=== PATIENT | female | born 2000 | race Caucasian/White ===

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

== ENCOUNTER → 2018-03-05 | Outpatient (CLI) | payer BC ==
[~2018-03-05] MED LIST changes: +Augmentin 875-1 EACH PO
== END | disposition home or self-care (01) ==
LOC: LAB 10:41 → LAB SHORT 10:41
DX: Z09 Encounter for follow-up examination after completed treatment for conditions other than malignant neoplasm (principal); Z86.14 Personal history of Methicillin resistant Staphylococcus aureus infection
CPT/HCPCS: 87081

== ENCOUNTER → 2018-04-07 | Outpatient (CLI) | payer BC | END | disposition home or self-care (01) | LOC: LAB SHORT 19:05 → LAB 19:05 | DX: Z09 Encounter for follow-up examination after completed treatment for conditions other than malignant neoplasm (principal); Z86.14 Personal history of Methicillin resistant Staphylococcus aureus infection | CPT/HCPCS: 87081 ==

== ENCOUNTER → 2018-07-08 | Outpatient (CLI) | payer BC, OTHER | END | disposition home or self-care (01) | LOC: LAB 14:40 → LAB SHORT 14:40 | DX: B95.62 Methicillin resistant Staphylococcus aureus infection as the cause of diseases classified elsewhere (principal) | CPT/HCPCS: 87081 ==

== ENCOUNTER → 2018-08-24 | Outpatient (CLI) | payer BC, OTHER ==
[~2018-08-24] MED LIST changes: +EVENING PRIMR1000 MG PO; +VALA500 PO; +Verotin-Gr Cap1 EACH PO
== END ==
LOC: LAB 16:48 → LAB SHORT 16:48
DX: L72.3 Sebaceous cyst (principal)
CPT/HCPCS: 87070; 87077; 87147; 87186; 87205

== ENCOUNTER 2018-08-30 11:23 | Emergency (ER) | payer BC, OTHER ==
[~2018-08-30] VITALS: Ht 162.6 cm; Wt 95.2 kg
[~2018-08-30 11:23] MED LIST changes: -EVENING PRIMR1000 MG PO; -VALA500 PO; -Verotin-Gr Cap1 EACH PO
[2018-08-30] MEDS ORDERED: Verotin-Gr Cap1 EACH PO (11:41)
== END 2018-08-30 13:46 | disposition home or self-care (01) ==
LOC: ER 11:23
DX: O99.713 Diseases of the skin and subcutaneous tissue complicating pregnancy, third trimester (principal); L02.411 Cutaneous abscess of right axilla; A49.02 Methicillin resistant Staphylococcus aureus infection, unspecified site; Z3A.34 34 weeks gestation of pregnancy
CPT/HCPCS: 10060; 96365-59; 99283-25; J0878

== ENCOUNTER 2018-08-31 18:12 | Emergency (ER) | payer BC, OTHER ==
[~2018-08-31] VITALS: Ht 162.6 cm; Wt 86.2 kg
[~2018-08-31 18:12] MED LIST changes: +Verotin-Gr Cap1 EACH PO
== END 2018-08-31 18:22 | disposition home or self-care (01) ==
LOC: ER 18:12
DX: O99.719 Diseases of the skin and subcutaneous tissue complicating pregnancy, unspecified trimester (principal); L02.411 Cutaneous abscess of right axilla; O98.819 Other maternal infectious and parasitic diseases complicating pregnancy, unspecified trimester; A49.02 Methicillin resistant Staphylococcus aureus infection, unspecified site; Z88.2 Allergy status to sulfonamides; Z91.040 Latex allergy status; Z87.891 Personal history of nicotine dependence
CPT/HCPCS: 99282

== ENCOUNTER → 2018-09-08 | Outpatient (CLI) | payer BC, OTHER ==
[~2018-09-08] MED LIST changes: +EVENING PRIMR1000 MG PO; +VALA500 PO
== END | disposition home or self-care (01) ==
LOC: LAB SHORT 14:33 → LAB 14:33
DX: Z09 Encounter for follow-up examination after completed treatment for conditions other than malignant neoplasm (principal); Z86.14 Personal history of Methicillin resistant Staphylococcus aureus infection
CPT/HCPCS: 87081

== ENCOUNTER 2018-10-01 20:00 | Inpatient (IN) | payer BC, OTHER ==
[~2018-10-01] VITALS: Ht 162.6 cm; Wt 99.0 kg
[~2018-10-01 20:00] MED LIST changes: -EVENING PRIMR1000 MG PO; -VALA500 PO
[2018-10-01] MEDS ORDERED: VALA500 PO (20:32)
[2018-10-01] MEDS ORDERED: EVENING PRIMR1000 MG PO (20:33)
[2018-10-01 21:04] LABS: BASOPHILS ABSOLUTE AUTO 0.05 K/mm3 (0.00-0.23); BASOPHILS PERCENT AUTO 0 % (0-2); EOSINOPHILS ABSOLUTE AUTO 0.37 K/mm3 (0.00-0.68); EOSINOPHILS PERCENT AUTO 3 % (0-6); Hematocrit 32.4 % (33.0-51.0); Hemoglobin 10.2 g/dL (11.5-16.0); IMMATURE GRAN ABSOLUTE AUTO 0.07 K/mm3 (0.00-0.10); IMMATURE GRAN PERCENT AUTO 1 % (0-1); LYMPHOCYTES ABSOLUTE AUTO 3.17 K/mm3 (0.84-5.20); LYMPHOCYTES PERCENT AUTO 28 % (21-46); MONOCYTES ABSOLUTE AUTO 1.04 K/mm3 (0.16-1.47); MONOCYTES PERCENT AUTO 9 % (4-13); Mean Corpuscular HGB 26.2 pg (26.0-34.0); Mean Corpuscular HGB Conc 31.5 g/dL (31.5-36.5); Mean Corpuscular Volume 83 fL (80-100); Mean Platelet Volume 10.7 fL (9.1-12.4); NEUTROPHILS ABSOLUTE AUTO 6.45 K/mm3 (1.96-9.15); NEUTROPHILS PERCENT AUTO 58 % (41-73); Platelet Count 340 K/mm3 (150-400); White Blood Cell Count 11.15 K/mm3 (4.00-11.30)
--- NOTE | 2018-10-02 08:09 | NUR ---
0718 ASSUMED CARE OF PATIENT AWAKE AND RESTING IN BED. VSS. SWAB FOR MRSA OBTAINED PER INFECTIOUS DISEASE PROTOCOL. EXPLAINED TO PATIENT AND HER MOTHER THAT HER INDUCTION WEOULD BE DELAYED DUE TO STAFFING ISSUES. I WILL KEEP THEM INFORMED TO WHEN INDUCTION WILL OCCUR. Frieda COPELAND CNM AWARE OF DELAY
--- NOTE | 2018-10-02 16:15 | NUR ---
HEAD DELIVERED 50 SECONDS BEFORE BODY
--- NOTE | 2018-10-02 17:20 | NUR ---
FIRST PP VOID
--- NOTE | 2018-10-03 11:37 | NUR ---
Printed d/c instructions reviewed w/pt. Denies questions/concerns at this time.
[2018-10-03] MEDS ORDERED: IBUP800 PO (15:12)
--- NOTE | 2018-10-03 15:42 | NUR ---
No acute changes t/o shift. ID bands matched w/nb and verification form. Pt d/c'd home ambulatory to care of family.
== END 2018-10-03 15:30 | disposition home or self-care (01) | DRG 807 ==
LOC: BC 20:00
PROVIDERS: ADMIT Nurse Practitioner Obstetrics & Gynecology
PROC: 10E0XZZ Delivery of Products of Conception, External Approach (ICD-10-PCS; principal; 2018-10-02)
PROC: 3E0R3BZ Introduction of Anesthetic Agent into Spinal Canal, Percutaneous Approach (ICD-10-PCS; 2018-10-02)
PROC: 3E0234Z Introduction of Serum, Toxoid and Vaccine into Muscle, Percutaneous Approach (ICD-10-PCS; 2018-10-03)
DX: O40.3XX0 Polyhydramnios, third trimester, not applicable or unspecified (principal); Z37.0 Single live birth; O36.63X0 Maternal care for excessive fetal growth, third trimester, not applicable or unspecified; Z3A.39 39 weeks gestation of pregnancy; Z23 Encounter for immunization; Z88.2 Allergy status to sulfonamides; Z91.040 Latex allergy status; Z86.14 Personal history of Methicillin resistant Staphylococcus aureus infection; O99.214 Obesity complicating childbirth; E66.9 Obesity, unspecified; Z68.37 Body mass index [BMI] 37.0-37.9, adult
CPT/HCPCS: 36415; 51702; 85025; 86900; 86901; 87070; 87081; 90471; 90707; J1885; J2210; J2590; J3010; J7120

== ENCOUNTER 2019-02-14 16:10 | Emergency (ER) | payer BC, OTHER ==
[~2019-02-14] VITALS: Ht 162.6 cm; Wt 88.5 kg
[~2019-02-14 16:10] MED LIST changes: +EVENING PRIMR1000 MG PO; +VALA500 PO
[2019-02-14 17:11] LABS: Source, Urine Clean Catch
[2019-02-14 17:15] LABS: BASOPHILS ABSOLUTE AUTO 0.09 K/mm3 (0.00-0.23); BASOPHILS PERCENT AUTO 1 % (0-2); EOSINOPHILS ABSOLUTE AUTO 0.67 K/mm3 (0.00-0.68); EOSINOPHILS PERCENT AUTO 7 % (0-6); Hematocrit 43.4 % (33.0-51.0); IMMATURE GRAN ABSOLUTE AUTO 0.01 K/mm3 (0.00-0.10); IMMATURE GRAN PERCENT AUTO 0 % (0-1); LYMPHOCYTES ABSOLUTE AUTO 3.63 K/mm3 (0.84-5.20); LYMPHOCYTES PERCENT AUTO 40 % (21-46); MONOCYTES ABSOLUTE AUTO 0.89 K/mm3 (0.16-1.47); MONOCYTES PERCENT AUTO 10 % (4-13); Mean Corpuscular HGB 28.3 pg (26.0-34.0); Mean Corpuscular HGB Conc 32.3 g/dL (31.5-36.5); Mean Corpuscular Volume 88 fL (80-100); Mean Platelet Volume 9.9 fL (9.1-12.4); NEUTROPHILS ABSOLUTE AUTO 3.76 K/mm3 (1.96-9.15); NEUTROPHILS PERCENT AUTO 42 % (41-73); Platelet Count 387 K/mm3 (150-400); RDW Coefficient Variation 11.9 % (11.7-14.2); Red Blood Cell Count 4.95 M/mm3 (3.80-5.20); White Blood Cell Count 9.05 K/mm3 (4.00-11.30)
[2019-02-14 17:36] LABS: Alanine Aminotransfer (ALT/SGP 55 U/L (12-78); Albumin, Blood 3.8 g/dL (3.4-5.0); Albumin/Globulin Ratio 0.8 (0.8-1.8); Alk Phos 90 U/L (50-136); Anion Gap 6 mmol/L (6-16); Aspartate Aminotrans (AST/SGOT 24 U/L (12-37); Bilirubin, Total 0.4 mg/dL (0.1-1.0); Blood Urea Nitrogen 16 mg/dL (8-24); Bun/Creatinine Ratio 25.1 (12.0-20.0); CO2, Blood 25 mmol/L (21-32); Chloride, Blood 110 mmol/L (98-108); Creatinine, Blood 0.64 mg/dL (0.40-1.00); Globulin, Blood 4.5 g/dL (2.2-4.0); Glomerular Filtration Rate >60 (60-); Glucose, Blood 78 mg/dL (70-99); Potassium, Blood 3.9 mmol/L (3.5-5.5); Sodium, Blood 141 mmol/L (136-145); Total Protein, Blood 8.3 g/dL (6.4-8.2)
[2019-02-14 17:47] LABS: Bilirubin, Urine Neg (Neg); Blood, Urine 1+ (Neg); Glucose Qualitative, Urine Neg (Neg); Ketones, Urine Neg (Neg); Leukocyte Esterase, Urine Neg (Neg); Nitrite, Urine Neg (Neg); Protein, Urine 1+ (Neg); Specific Gravity, Urine 1.015 (1.003-1.022); Urobilinogen, Urine NORM (Normal)
[2019-02-14 17:48] LABS: Appearance, Urine Clear (Clear); Color, Urine Yellow (P-Yellow)
[2019-02-14 18:08] LABS: Bacteria Rare /hpf; Red Blood Cells, Urine Not Seen /hpf (0-2); Squamous Epithelial Cells Rare /hpf (Few); White Blood Cells, Urine Rare /hpf (0-5)
== END 2019-02-14 20:22 | disposition home or self-care (01) ==
LOC: ER 16:10
PROVIDERS: Physician Assistant
DX: R10.31 Right lower quadrant pain (principal); Z88.2 Allergy status to sulfonamides; Z91.040 Latex allergy status
CPT/HCPCS: 36415; 76830; 76856; 80053; 81001; 81025; 83690; 85025; 96360; 99284-25; J2405; J7030

== ENCOUNTER 2019-04-07 08:04 | Emergency (ER) | payer BC, OTHER ==
[~2019-04-07] VITALS: Ht 162.6 cm; Wt 90.7 kg
[2019-04-07] MEDS ORDERED: Prednisone20 MG PO (09:21)
[2019-04-07] MEDS ORDERED: Sudogest60 MG PO (09:24)
== END 2019-04-07 09:29 | disposition home or self-care (01) ==
LOC: ER 08:04
DX: K12.2 Cellulitis and abscess of mouth (principal); J32.9 Chronic sinusitis, unspecified; Z88.2 Allergy status to sulfonamides; Z91.040 Latex allergy status; Z79.52 Long term (current) use of systemic steroids; Z79.899 Other long term (current) drug therapy
CPT/HCPCS: 87081; 87430; 99282; J1100

== ENCOUNTER 2019-04-27 17:19 | Emergency (ER) | payer BC, OTHER ==
[~2019-04-27] VITALS: Ht 162.6 cm; Wt 93.0 kg
[~2019-04-27 17:19] MED LIST changes: +Prednisone20 MG PO; +Sudogest60 MG PO
[2019-04-27] MEDS ORDERED: DEPO-PROVE150 MG/1 M IM (17:47)
[2019-04-27 18:36] LABS: BASOPHILS ABSOLUTE AUTO 0.03 K/mm3 (0.00-0.23); BASOPHILS PERCENT AUTO 0 % (0-2); EOSINOPHILS ABSOLUTE AUTO 0.24 K/mm3 (0.00-0.68); EOSINOPHILS PERCENT AUTO 3 % (0-6); Hematocrit 40.7 % (33.0-51.0); Hemoglobin 13.1 g/dL (11.5-16.0); IMMATURE GRAN ABSOLUTE AUTO 0.02 K/mm3 (0.00-0.10); IMMATURE GRAN PERCENT AUTO 0 % (0-1); LYMPHOCYTES ABSOLUTE AUTO 1.63 K/mm3 (0.84-5.20); LYMPHOCYTES PERCENT AUTO 19 % (21-46); MONOCYTES ABSOLUTE AUTO 0.29 K/mm3 (0.16-1.47); MONOCYTES PERCENT AUTO 3 % (4-13); Mean Corpuscular HGB Conc 32.2 g/dL (31.5-36.5); Mean Corpuscular Volume 87 fL (80-100); NEUTROPHILS ABSOLUTE AUTO 6.56 K/mm3 (1.96-9.15); NEUTROPHILS PERCENT AUTO 75 % (41-73); Platelet Count 298 K/mm3 (150-400); RDW Coefficient Variation 13.3 % (11.7-14.2); RDW Standard Deviation 41.9 fL (35.1-46.3); Red Blood Cell Count 4.68 M/mm3 (3.80-5.20); White Blood Cell Count 8.77 K/mm3 (4.00-11.30)
[2019-04-27 18:58] LABS: Alanine Aminotransfer (ALT/SGP 23 U/L (12-78); Albumin, Blood 3.9 g/dL (3.4-5.0); Alk Phos 85 U/L (50-136); Anion Gap 3 mmol/L (6-16); Aspartate Aminotrans (AST/SGOT 14 U/L (12-37); Bilirubin, Total 0.9 mg/dL (0.1-1.0); Blood Urea Nitrogen 17 mg/dL (8-24); Bun/Creatinine Ratio 18.6 (12.0-20.0); CO2, Blood 24 mmol/L (21-32); Calcium, Blood 8.4 mg/dL (8.5-10.1); Chloride, Blood 108 mmol/L (98-108); Creatinine, Blood 0.92 mg/dL (0.40-1.00); Globulin, Blood 3.8 g/dL (2.2-4.0); Glomerular Filtration Rate >60 (60-); Glucose, Blood 88 mg/dL (70-99); Potassium, Blood 3.7 mmol/L (3.5-5.5); Sodium, Blood 135 mmol/L (136-145); Total Protein, Blood 7.7 g/dL (6.4-8.2)
[2019-04-27 19:50] LABS: Source, Urine Clean Catch
[2019-04-27 19:52] LABS: Bilirubin, Urine Neg (Neg); Blood, Urine 1+ (Neg); Glucose Qualitative, Urine Neg (Neg); Ketones, Urine Neg (Neg); Leukocyte Esterase, Urine 1+ (Neg); Nitrite, Urine Neg (Neg); Protein, Urine 1+ (Neg); Urobilinogen, Urine NORM (Normal)
[2019-04-27 20:01] LABS: Appearance, Urine Clear (Clear); Color, Urine Yellow (P-Yellow)
[2019-04-27 20:03] LABS: Bacteria Few /hpf; Mucus Light (0-Heavy); Red Blood Cells, Urine 0-2 /hpf (0-2); Squamous Epithelial Cells Few /hpf (Few); White Blood Cells, Urine 0-2 /hpf (0-5)
[2019-04-27 21:05] LABS: Influenza A Negative (NEGATIVE); Influenza B Negative (NEGATIVE)
== END 2019-04-27 22:26 | disposition home or self-care (01) ==
LOC: ER 17:19
PROVIDERS: Emergency Medicine; Physician Assistant
DX: R10.30 Lower abdominal pain, unspecified (principal); Z88.2 Allergy status to sulfonamides; Z91.040 Latex allergy status
CPT/HCPCS: 36415; 76830; 76856; 80053; 81001; 81025; 83690; 85025; 87086; 87804; 96361; 96374; 99284-25; J1885; J7030

== ENCOUNTER 2019-06-13 11:43 | Emergency (ER) | payer BC, OTHER ==
[~2019-06-13] VITALS: Ht 162.6 cm; Wt 95.2 kg
[~2019-06-13 11:43] MED LIST changes: +DEPO-PROVE150 MG/1 M IM
[2019-06-13] MEDS ORDERED: KEFLEX500 MG PO (12:41)
[2019-06-13] MEDS ORDERED: CLIN300 PO (12:41)
== END 2019-06-13 13:05 | disposition home or self-care (01) ==
LOC: ER 11:43
DX: L03.116 Cellulitis of left lower limb (principal); Z88.2 Allergy status to sulfonamides; Z91.040 Latex allergy status
CPT/HCPCS: 99283; A9270-GY

== ENCOUNTER → 2019-07-23 | Outpatient (CLI) | payer BC, OTHER ==
[~2019-07-23] MED LIST changes: +CLIN300 PO; +KEFLEX500 MG PO
[2019-07-24 10:46] LABS: Candida species (DNA Probe) Negative (NEGATIVE); G. vaginalis (DNA Probe) Negative (NEGATIVE); T. vaginalis (DNA Probe) Negative (NEGATIVE)
[2019-07-25 05:07] LABS: CHLAMYDIA TRACHOMATIS, NAA Negative (Negative); NEISSERIA GONORRHOEAE, NAA Negative (Negative)
== END | disposition home or self-care (01) ==
LOC: LAB SHORT 15:01 → LAB 15:01
PROVIDERS: Physician Assistant
DX: R10.2 Pelvic and perineal pain (principal); R30.0 Dysuria
CPT/HCPCS: 87086; 87480; 87491; 87510; 87591; 87660

== ENCOUNTER 2020-06-01 01:00 | Emergency (ER) | payer BC, OTHER ==
[~2020-06-01] VITALS: Ht 162.6 cm; Wt 99.8 kg
[2020-06-01 02:03] LABS: Source, Urine Clean Catch
[2020-06-01 02:06] LABS: Bilirubin, Urine Neg (Neg); Blood, Urine Neg (Neg); Glucose Qualitative, Urine Neg (Neg); Ketones, Urine 2+ (Neg); Leukocyte Esterase, Urine Neg (Neg); Nitrite, Urine Neg (Neg); Protein, Urine 1+ (Neg); Urobilinogen, Urine NORM (Normal)
[2020-06-01 02:12] LABS: Appearance, Urine Clear (Clear); Color, Urine Yellow (P-Yellow)
[2020-06-01 02:59] LABS: BASOPHILS ABSOLUTE AUTO 0.09 K/mm3 (0.00-0.23); BASOPHILS PERCENT AUTO 1 % (0-2); EOSINOPHILS PERCENT AUTO 8 % (0-6); Hemoglobin 12.3 g/dL (11.5-16.0); IMMATURE GRAN ABSOLUTE AUTO 0.02 K/mm3 (0.00-0.10); IMMATURE GRAN PERCENT AUTO 0 % (0-1); LYMPHOCYTES ABSOLUTE AUTO 4.24 K/mm3 (0.84-5.20); LYMPHOCYTES PERCENT AUTO 45 % (21-46); MONOCYTES ABSOLUTE AUTO 0.58 K/mm3 (0.16-1.47); MONOCYTES PERCENT AUTO 6 % (4-13); Mean Corpuscular HGB 29.9 pg (26.0-34.0); Mean Corpuscular HGB Conc 33.2 g/dL (31.5-36.5); Mean Corpuscular Volume 90 fL (80-100); Mean Platelet Volume 10.2 fL (9.1-12.4); NEUTROPHILS ABSOLUTE AUTO 3.76 K/mm3 (1.96-9.15); NEUTROPHILS PERCENT AUTO 40 % (41-73); Platelet Count 326 K/mm3 (150-400); RDW Coefficient Variation 12.6 % (11.7-14.2); RDW Standard Deviation 41.8 fL (35.1-46.3); Red Blood Cell Count 4.11 M/mm3 (3.80-5.20); White Blood Cell Count 9.49 K/mm3 (4.00-11.30)
[2020-06-01 03:16] LABS: Alanine Aminotransfer (ALT/SGP 31 U/L (12-78); Albumin, Blood 3.5 g/dL (3.4-5.0); Albumin/Globulin Ratio 0.9 (0.8-1.8); Alk Phos 91 U/L (50-136); Anion Gap 5 mmol/L (6-16); Aspartate Aminotrans (AST/SGOT 17 U/L (12-37); Bilirubin, Total 0.4 mg/dL (0.1-1.0); Blood Urea Nitrogen 19 mg/dL (8-24); Bun/Creatinine Ratio 20.8 (12.0-20.0); CO2, Blood 29 mmol/L (21-32); Calcium, Blood 8.7 mg/dL (8.5-10.1); Chloride, Blood 107 mmol/L (98-108); Creatinine, Blood 0.91 mg/dL (0.40-1.00); Globulin, Blood 3.7 g/dL (2.2-4.0); Glomerular Filtration Rate >60 (60-); Glucose, Blood 95 mg/dL (70-99); Potassium, Blood 3.3 mmol/L (3.5-5.5); Sodium, Blood 141 mmol/L (136-145); Total Protein, Blood 7.2 g/dL (6.4-8.2)
== END 2020-06-01 04:35 | disposition home or self-care (01) ==
LOC: ER 01:00
PROVIDERS: Emergency Medicine
DX: E28.2 Polycystic ovarian syndrome (principal); Z88.2 Allergy status to sulfonamides; Z91.040 Latex allergy status
CPT/HCPCS: 36415; 80053; 81025; 85025; 96374; 99284-25; A9270; J1885

== ENCOUNTER → 2021-07-04 | Outpatient (CLI) | payer BC, OTHER | LOC: LAB SHORT 10:55 → LAB 10:55 | DX: D48.5 Neoplasm of uncertain behavior of skin (principal); L73.2 Hidradenitis suppurativa; L81.4 Other melanin hyperpigmentation; L08.9 Local infection of the skin and subcutaneous tissue, unspecified | CPT/HCPCS: 87070; 87077; 87147; 87186 ==

== ENCOUNTER → 2021-08-29 | Outpatient (CLI) | payer BC, OTHER | END | disposition home or self-care (01) | LOC: LAB 11:00 → LAB SHORT 11:00 | DX: N39.0 Urinary tract infection, site not specified (principal) | CPT/HCPCS: 87086 ==

== ENCOUNTER → 2021-08-29 | Outpatient (CLI) | payer BC, OTHER ==
[2021-08-29 20:52] LABS: Adenovirus F 40/41 Not Detected (NOT DETECT); Astrovirus Not Detected (NOT DETECT); Campylobacter Sp Detected (NOT DETECT); Cryptosporidium Not Detected (NOT DETECT); Cyclospora Cayetanensis Not Detected (NOT DETECT); E. Coli O157 Not Detected (NOT DETECT); Entamoeba Histolytica Not Detected (NOT DETECT); Enteroaggregative E. coli-EAEC Not Detected (NOT DETECT); Enteropathogenic E. coli-EPEC Not Detected (NOT DETECT); Enterotoxigenic E. coli-ETEC Not Detected (NOT DETECT); Giardia Lamblia Not Detected (NOT DETECT); Norovirus GI/GII Not Detected (NOT DETECT); Plesiomonas Shigelloides Not Detected (NOT DETECT); Rotavirus A Not Detected (NOT DETECT); Salmonella Sp Not Detected (NOT DETECT); Sapovirus Not Detected (NOT DETECT); Shiga Toxin-prod E. coli-STEC Not Detected (NOT DETECT); Shigella/Enteroin E. coli-EIEC Not Detected (NOT DETECT); Vibrio Cholerae Not Detected (NOT DETECT); Vibrio Sp Not Detected (NOT DETECT); Yersinia Enterocolitica Not Detected (NOT DETECT)
== END | disposition home or self-care (01) ==
LOC: LAB SHORT 17:00 → LAB 17:00 → LAB FUT 08-29 17:00
PROVIDERS: Family Medicine
DX: K52.9 Noninfective gastroenteritis and colitis, unspecified (principal); R79.9 Abnormal finding of blood chemistry, unspecified
CPT/HCPCS: 87507

== ENCOUNTER 2022-06-04 09:36 | Emergency (ER) | payer BC, OTHER ==
[~2022-06-04] VITALS: Ht 162.6 cm; Wt 108.0 kg
[2022-06-04 11:13] LABS: Albumin, Blood 3.5 g/dL (3.4-5.0); Albumin/Globulin Ratio 0.8 (0.8-1.8); Bilirubin, Total 1.3 mg/dL (0.1-1.0); Bun/Creatinine Ratio 16.2 (12.0-20.0); Calcium, Blood 8.4 mg/dL (8.5-10.1); Creatinine, Blood 0.68 mg/dL (0.40-1.00); Globulin, Blood 4.3 g/dL (2.2-4.0); Potassium, Blood 4.4 mmol/L (3.5-5.5); Total Protein, Blood 7.8 g/dL (6.4-8.2)
[2022-06-04 11:24] LABS: Influenza A, PCR NEGATIVE (NEGATIVE); Influenza B, PCR NEGATIVE (NEGATIVE); Resp Syncytial Virus, PCR NEGATIVE (NEGATIVE); SARS-Cov-2 (COVID-19) PCR, MMC NEGATIVE (NEGATIVE)
[2022-06-04 11:34] LABS: BASOPHILS ABSOLUTE AUTO 0.04 K/mm3 (0.00-0.23); BASOPHILS PERCENT AUTO 0 % (0-2); EOSINOPHILS ABSOLUTE AUTO 0.14 K/mm3 (0.00-0.68); EOSINOPHILS PERCENT AUTO 2 % (0-6); Hematocrit 41.9 % (33.0-51.0); Hemoglobin 14.1 g/dL (11.5-16.0); IMMATURE GRAN ABSOLUTE AUTO 0.03 K/mm3 (0.00-0.10); IMMATURE GRAN PERCENT AUTO 0 % (0-1); LYMPHOCYTES ABSOLUTE AUTO 1.21 K/mm3 (0.84-5.20); LYMPHOCYTES PERCENT AUTO 13 % (21-46); MONOCYTES ABSOLUTE AUTO 0.52 K/mm3 (0.16-1.47); MONOCYTES PERCENT AUTO 6 % (4-13); Mean Corpuscular HGB 29.3 pg (26.0-34.0); Mean Corpuscular HGB Conc 33.7 g/dL (31.5-36.5); Mean Corpuscular Volume 87 fL (80-100); Mean Platelet Volume 9.7 fL (9.1-12.4); NEUTROPHILS PERCENT AUTO 79 % (41-73); Platelet Count 292 K/mm3 (150-400); RDW Coefficient Variation 11.9 % (11.7-14.2); RDW Standard Deviation 38.3 fL (35.1-46.3); Red Blood Cell Count 4.81 M/mm3 (3.80-5.20); White Blood Cell Count 9.24 K/mm3 (4.00-11.30)
[2022-06-04 12:01] LABS: Source, Urine Clean Catch
[2022-06-04 12:06] LABS: Bilirubin, Urine Neg (Neg); Blood, Urine Neg (Neg); Glucose Qualitative, Urine Neg (Neg); Ketones, Urine Neg (Neg); Leukocyte Esterase, Urine Neg (Neg); Nitrite, Urine Neg (Neg); Protein, Urine 1+ (Neg); Urobilinogen, Urine NORM (Normal)
[2022-06-04 12:07] LABS: Appearance, Urine Clear (Clear); Color, Urine Yellow (P-Yellow)
[2022-06-04 12:18] LABS: U Amphetamine Screen Not Detected; U Barbituate Screen Not Detected; U Benzodiazapine Screen Not Detected; U Buprenorphine Screen Not Detected; U Cannabinoids Screen Not Detected; U Cocaine Screen Not Detected; U Methadone Screen Not Detected; U Methamphetamine Screen Not Detected; U Opiates Screen Not Detected; U Oxycodone Screen Not Detected; U Phencyclidine Screen Not Detected; U Propoxyphene Screen Not Detected
[2022-06-04] MEDS ORDERED: Zofran4 MG PO (14:12)
[2022-06-04 15:02] LABS: C-REACTIVE PROTEIN, EXT RANGE 2.2 mg/dL (0.000-0.300); Thyroid Stimulating Hormone 1.78 uIU/mL (0.360-4.800)
== END 2022-06-04 16:00 | disposition home or self-care (01) ==
LOC: ER 09:36
PROVIDERS: Physician Assistant; Student in an Organized Health Care Education/Training Program
DX: R00.0 Tachycardia, unspecified (principal); R11.0 Nausea; Z88.2 Allergy status to sulfonamides; Z91.040 Latex allergy status; Z20.822 Contact with and (suspected) exposure to COVID-19
CPT/HCPCS: 0241U; 36415; 71045; 80053; 81025; 82550; 83690; 84443; 85025; 85379; 86140; 86308; 93005; 93010; J1885; J7030

== ENCOUNTER 2022-10-04 21:29 | Observation (INO) | payer BC, OTHER ==
[~2022-10-04] VITALS: Ht 162.6 cm; Wt 105.4 kg
[~2022-10-04 21:29] MED LIST changes: +Zofran4 MG PO
[2022-10-04 23:07] LABS: BASOPHILS ABSOLUTE AUTO 0.06 K/mm3 (0.00-0.23); BASOPHILS PERCENT AUTO 1 % (0-2); EOSINOPHILS ABSOLUTE AUTO 0.47 K/mm3 (0.00-0.68); EOSINOPHILS PERCENT AUTO 5 % (0-6); Hematocrit 41.1 % (33.0-51.0); Hemoglobin 13.6 g/dL (11.5-16.0); IMMATURE GRAN ABSOLUTE AUTO 0.02 K/mm3 (0.00-0.10); IMMATURE GRAN PERCENT AUTO 0 % (0-1); LYMPHOCYTES ABSOLUTE AUTO 3.15 K/mm3 (0.84-5.20); LYMPHOCYTES PERCENT AUTO 35 % (21-46); MONOCYTES ABSOLUTE AUTO 0.56 K/mm3 (0.16-1.47); MONOCYTES PERCENT AUTO 6 % (4-13); Mean Corpuscular HGB 29.7 pg (26.0-34.0); Mean Corpuscular HGB Conc 33.1 g/dL (31.5-36.5); Mean Corpuscular Volume 90 fL (80-100); Mean Platelet Volume 10.2 fL (9.1-12.4); NEUTROPHILS ABSOLUTE AUTO 4.85 K/mm3 (1.96-9.15); NEUTROPHILS PERCENT AUTO 53 % (41-73); Platelet Count 351 K/mm3 (150-400); RDW Coefficient Variation 12.1 % (11.7-14.2); RDW Standard Deviation 39.8 fL (35.1-46.3); Red Blood Cell Count 4.58 M/mm3 (3.80-5.20); White Blood Cell Count 9.11 K/mm3 (4.00-11.30)
[2022-10-04 23:24] LABS: Albumin, Blood 3.5 g/dL (3.4-5.0); Albumin/Globulin Ratio 0.9 (0.8-1.8); Bilirubin, Total 0.3 mg/dL (0.1-1.0); Bun/Creatinine Ratio 11.2 (12.0-20.0); Calcium, Blood 8.5 mg/dL (8.5-10.1); Creatinine, Blood 0.98 mg/dL (0.40-1.00); Potassium, Blood 3.9 mmol/L (3.5-5.5); Total Protein, Blood 7.5 g/dL (6.4-8.2)
[2022-10-04] MEDS ORDERED: EUTHYROX100 MC1 PO (23:28)
[2022-10-04] MEDS ORDERED: GABAPENTIN600 MG PO (23:28)
[2022-10-04] MEDS ORDERED: MELO7.5 PO (23:28)
[2022-10-05 01:00] VITALS: BP 111/96
[2022-10-05 04:42] VITALS: BP 103/79
--- NOTE | 2022-10-05 06:21 | NUR ---
SHIFT SUMMARY PT ER ADMIT THIS SHIFT FOR INCREASED VAGINAL BLEEDING AFTER MISCARRIAGE. PT TO HAVE D&C TODAY WITH DR. ZHANG. PT REPORTS THAT SHE HAS HAD NO VAGINAL BLEEDING SINCE ADMISSION. VITALS ARE STABLE. PT DOES NOT REPORT PAIN OR ANY CRAMPING. PT HAS BEEN NPO SINCE ADMISSION. INFECTION PREVENTION WASH COMPLETE. PT HAS BEEN INDEPENDENT IN THE ROOM, MAKES NEEDS KNOWN. BED IN LOWEST POSITION, CALL LIGHT WITHIN REACH. FIRE RISK ASSESSED THIS SHIFT, PT EDUCATED ON FIRE RISK AND IGNITION SOURCES, PT DENIES HAVING IGNITION SOURCES.
[2022-10-05 07:05] VITALS: BP 118/77
[2022-10-05 08:20] LABS: BASOPHILS ABSOLUTE AUTO 0.06 K/mm3 (0.00-0.23); BASOPHILS PERCENT AUTO 1 % (0-2); EOSINOPHILS ABSOLUTE AUTO 0.42 K/mm3 (0.00-0.68); EOSINOPHILS PERCENT AUTO 5 % (0-6); Hematocrit 40.2 % (33.0-51.0); Hemoglobin 13.4 g/dL (11.5-16.0); IMMATURE GRAN ABSOLUTE AUTO 0.01 K/mm3 (0.00-0.10); IMMATURE GRAN PERCENT AUTO 0 % (0-1); LYMPHOCYTES ABSOLUTE AUTO 2.76 K/mm3 (0.84-5.20); LYMPHOCYTES PERCENT AUTO 32 % (21-46); MONOCYTES ABSOLUTE AUTO 0.61 K/mm3 (0.16-1.47); MONOCYTES PERCENT AUTO 7 % (4-13); Mean Corpuscular HGB 29.5 pg (26.0-34.0); Mean Corpuscular HGB Conc 33.3 g/dL (31.5-36.5); Mean Corpuscular Volume 89 fL (80-100); Mean Platelet Volume 9.9 fL (9.1-12.4); NEUTROPHILS ABSOLUTE AUTO 4.66 K/mm3 (1.96-9.15); NEUTROPHILS PERCENT AUTO 55 % (41-73); Platelet Count 300 K/mm3 (150-400); RDW Coefficient Variation 12.2 % (11.7-14.2); RDW Standard Deviation 39.8 fL (35.1-46.3); Red Blood Cell Count 4.54 M/mm3 (3.80-5.20); White Blood Cell Count 8.52 K/mm3 (4.00-11.30)
--- NOTE | 2022-10-05 13:34 | NUR ---
DISCHARGE SUMMARY PT A&OX4, VSS/RA/AFEBRILE, KATHERINE PO, VOIDING, MIN BLEEDING, IV DC'D. DC INS PROVIDED. PT REP UNDERSTANDING THOSE INSTRUCTIONS. LEFT FLOOR/WALKED OUT WITH [employer]PORATE AFFAIRS MANAGER, DECLINED WC, WITH ALL PERSONAL POSSESSIONS, TO GO HOME WITH .
== END 2022-10-05 13:28 | disposition home or self-care (01) ==
LOC: ER 21:29 → SURS 21:30
PROVIDERS: Emergency Medicine; ADMIT Obstetrics & Gynecology
DX: O03.1 Delayed or excessive hemorrhage following incomplete spontaneous abortion (principal); Z88.2 Allergy status to sulfonamides; Z88.1 Allergy status to other antibiotic agents; Z91.040 Latex allergy status; Z79.890 Hormone replacement therapy
CPT/HCPCS: 36415; 76801; 76817; 80053; 84702; 85025; 86900; 86901; 99285-25; A9270; G0378

== ENCOUNTER 2022-11-29 13:10 | Emergency (ER) | payer BC, OTHER ==
[~2022-11-29] VITALS: Ht 162.6 cm; Wt 108.9 kg
[~2022-11-29 13:10] MED LIST changes: +EUTHYROX100 MC1 PO; +GABAPENTIN600 MG PO; +MELO7.5 PO
[2022-11-29 13:31] VITALS: BP 137/85
== END 2022-11-29 14:18 | disposition home or self-care (01) ==
LOC: ER 13:10
DX: U07.1 COVID-19 (principal); Z88.2 Allergy status to sulfonamides; Z91.040 Latex allergy status
CPT/HCPCS: 99283

== ENCOUNTER 2023-04-22 12:53 | Emergency (ER) | payer BC, OTHER ==
[~2023-04-22] VITALS: Ht 162.6 cm; Wt 106.6 kg
[2023-04-22 13:08] VITALS: BP 128/80
[2023-04-22] MEDS ORDERED: Lidocaine 4% 1 Patch TOP ONE (14:00)
== END 2023-04-22 14:13 | disposition home or self-care (01) ==
LOC: ER 12:53
DX: O99.891 Other specified diseases and conditions complicating pregnancy (principal); M54.9 Dorsalgia, unspecified; Z3A.08 8 weeks gestation of pregnancy; Z88.2 Allergy status to sulfonamides; Z91.040 Latex allergy status; Z79.899 Other long term (current) drug therapy; Z79.890 Hormone replacement therapy
CPT/HCPCS: 99283; A9270

== ENCOUNTER 2024-02-09 05:42 | Emergency (ER) | payer BC, OTHER ==
[~2024-02-09] VITALS: Ht 162.6 cm; Wt 104.3 kg
[~2024-02-09 05:42] MED LIST changes: +FLUOXETINE HCL20 M1 PO; +PRENATAL TABLE1 EAC2 PO
[2024-02-09] MEDS ORDERED: Dexamethasone Sod Phos 10 MG/ML 1ML VIAL PO ONE (06:15)
[2024-02-09] MEDS ORDERED: Ketorolac Tromethamine 30mg Vial IM ONE (06:15)
[2024-02-09] MEDS ORDERED: AMOX500 PO (06:34)
[2024-02-09] MEDS ORDERED: Amoxicillin 500 MG Cap PO ONE (06:35)
[2024-02-09 07:00] VITALS: BP 118/80
== END 2024-02-09 07:00 | disposition home or self-care (01) ==
LOC: ER 05:42
DX: J02.0 Streptococcal pharyngitis (principal); E03.9 Hypothyroidism, unspecified; Z88.2 Allergy status to sulfonamides; Z91.040 Latex allergy status; Z79.890 Hormone replacement therapy; Z79.899 Other long term (current) drug therapy
CPT/HCPCS: 87430; 96372; 99283-25; A9270; J1100; J1885

== ENCOUNTER 2024-03-06 13:46 | Emergency (ER) | payer BC, OTHER ==
[~2024-03-06] VITALS: Ht 162.6 cm; Wt 108.9 kg
[~2024-03-06 13:46] MED LIST changes: +AMOX500 PO
[2024-03-06 13:51] VITALS: BP 121/77
[2024-03-06 14:09] LABS: Source, Urine Clean Catch
[2024-03-06 14:13] LABS: Appearance, Urine Clear (Clear); Bilirubin, Urine Neg (Neg); Blood, Urine Neg (Neg); Color, Urine Yellow (P-Yellow); Glucose Qualitative, Urine Neg (Neg); Ketones, Urine Neg (Neg); Leukocyte Esterase, Urine Neg (Neg); Nitrite, Urine Neg (Neg); Protein, Urine 2+ (Neg); Urobilinogen, Urine NORM (Normal)
[2024-03-06 14:20] LABS: Bacteria Rare /hpf; Red Blood Cells, Urine Not Seen /hpf (0-2); Squamous Epithelial Cells Rare /hpf (Few); White Blood Cells, Urine 0-2 /hpf (0-5)
== END 2024-03-06 16:00 | disposition home or self-care (01) ==
LOC: ER 13:46
PROVIDERS: Physician Assistant
DX: N83.201 Unspecified ovarian cyst, right side (principal); E03.9 Hypothyroidism, unspecified; Z88.2 Allergy status to sulfonamides; Z91.040 Latex allergy status; Z79.890 Hormone replacement therapy; Z79.899 Other long term (current) drug therapy
CPT/HCPCS: 76830; 76856; 81001; 81025; 99284-25

== ENCOUNTER → 2024-03-23 | Outpatient (CLI) | payer BC, OTHER | LOC: LAB SHORT 16:43 → LAB 16:43 | DX: Z86.14 Personal history of Methicillin resistant Staphylococcus aureus infection (principal) | CPT/HCPCS: 87081 ==

== ENCOUNTER → 2024-04-01 | Outpatient (CLI) | payer BC, OTHER | END | disposition home or self-care (01) | LOC: LAB 17:47 → LAB SHORT 17:47 | DX: Z86.14 Personal history of Methicillin resistant Staphylococcus aureus infection (principal) | CPT/HCPCS: 87081 ==

== ENCOUNTER 2024-04-19 17:33 | Emergency (ER) | payer BC, OTHER ==
[~2024-04-19] VITALS: Ht 162.6 cm; Wt 104.3 kg
[2024-04-19] MEDS ORDERED: Acetaminophen 325 MG TABLET PO ONE (18:00)
[2024-04-19 18:49] VITALS: BP 110/67
[2024-04-19 19:05] LABS: CORONAVIRUS COVID-19 AG Negative (NEGATIVE); INFLUENZA A AG Negative (NEGATIVE); INFLUENZA B AG Negative (NEGATIVE)
[2024-04-19] MEDS ORDERED: OSEL75CA PO (19:18)
== END 2024-04-19 19:36 | disposition home or self-care (01) ==
LOC: ER 17:33
PROVIDERS: Physician Assistant
DX: B34.9 Viral infection, unspecified (principal); Z79.890 Hormone replacement therapy; Z79.899 Other long term (current) drug therapy; Z59.89 Other problems related to housing and economic circumstances
CPT/HCPCS: 87428-QW; 99283; A9270

== ENCOUNTER → 2024-04-26 | Outpatient (CLI) | payer BC, OTHER ==
[~2024-04-26] MED LIST changes: +OSEL75CA PO
== END ==
LOC: LAB SHORT 10:17 → LAB 10:17
DX: Z86.14 Personal history of Methicillin resistant Staphylococcus aureus infection (principal)
CPT/HCPCS: 87081

== ENCOUNTER 2024-05-07 06:24 | Day surgery (SDC) | payer BC, OTHER ==
[~2024-05-07] VITALS: Ht 162.6 cm; Wt 103.4 kg
[~2024-05-07 06:24] MED LIST changes: +Lactated Ringer's 1,000 ML IV ONE
[2024-05-07] MEDS ORDERED: CeFAZolin Sodium 2,000 MG VIAL ONE (06:41)
[2024-05-07] MEDS ORDERED: Bupivacaine 0.5% W/EPI 1:200000 SDV 30 ML Vial ONE (07:04)
[2024-05-07] MEDS ORDERED: Lactated Ringer's 1,000 ML IV ONE (07:11)
[2024-05-07] MEDS ORDERED: Scopolamine Hydrobromide Patch ONE (07:19)
[2024-05-07] MEDS ORDERED: Ondansetron HCl 2 MG / ML 2ML Vial ONE (07:27)
[2024-05-07] MEDS ORDERED: Dexamethasone Sod Phos 10 MG/ML 1ML VIAL ONE (07:27)
[2024-05-07] MEDS ORDERED: Rocuronium Bromide 10 MG/ML 5ML Injection IV ONE (07:27)
[2024-05-07] MEDS ORDERED: Ketorolac Tromethamine 30mg Vial ONE (07:27)
[2024-05-07] MEDS ORDERED: FentaNYL Citrate 50 MCG/ML 2 ML Injection ONE (07:27)
[2024-05-07] MEDS ORDERED: propofoL 20 ML IV ONE (07:27)
--- NOTE | 2024-05-07 07:32 | NUR ---
05/07/24 0733 Kelsie Hall VERBALLY ADVISED DR NDIAYE OF RECENT ER VISIT ON 04/19/2024 FOR COUGH, FEVER, BODY ACHES. NEGATIVE COVID AND NEGATIVE INFLUENZA TESTS. ADVISED DR NDIAYE THAT PATIENT REPORTED ALL SYMPTOMS HAVE RESOLVED
--- NOTE | 2024-05-07 07:53 | NUR ---
05/07/24 0753 Lore Mccormack RN DHX PREPED ABDOMEN AND TMG PREPED CRISTOFER AREA
[2024-05-07] MEDS ORDERED: Sugammadex Sodium 200 MG/2ML SDV (100 MG/ML) ONE (08:17)
--- NOTE | 2024-05-07 09:00 | NUR ---
05/07/24 0900 Mallorie Thao REPORT FROM QUANG MCDANIEL. PT RESTING QUIETLY IN CART W/O COMPLAINT. VSS, ON RA. NO VISIBLE SIGNS OF DISTRESS NOTED.
[2024-05-07] MEDS ORDERED: OxyCODONE 5 mg/Acetamin 325 mg TABLET ONE (09:45)
[2024-05-07 09:50] VITALS: BP 111/78
== END 2024-05-07 10:11 | disposition home or self-care (01) ==
LOC: ORSCSDS 06:24
PROVIDERS: Obstetrics & Gynecology
PROC: 8E0W4CZ Robotic Assisted Procedure of Trunk Region, Percutaneous Endoscopic Approach (ICD-10-PCS; principal; 2024-05-07 07:30)
PROC: 0UT74ZZ Resection of Bilateral Fallopian Tubes, Percutaneous Endoscopic Approach (ICD-10-PCS; principal; 2024-05-07 07:30)
DX: Z30.2 Encounter for sterilization (principal); E03.9 Hypothyroidism, unspecified; K21.9 Gastro-esophageal reflux disease without esophagitis; Z79.899 Other long term (current) drug therapy
CPT/HCPCS: 88302; A9270; J0690; J1100; J1885; J2405; J2704; J3010; J7120

== ENCOUNTER 2024-07-11 18:10 | Emergency (ER) | payer BC, OTHER ==
[~2024-07-11] VITALS: Ht 162.6 cm; Wt 102.1 kg
[~2024-07-11 18:10] MED LIST changes: -Lactated Ringer's 1,000 ML IV ONE
[2024-07-11 19:01] VITALS: BP 138/92
[2024-07-11 19:28] LABS: BASOPHILS ABSOLUTE AUTO 0.06 K/mm3 (0.00-0.23); BASOPHILS PERCENT AUTO 1 % (0-2); EOSINOPHILS ABSOLUTE AUTO 0.77 K/mm3 (0.00-0.68); EOSINOPHILS PERCENT AUTO 8 % (0-6); Hematocrit 42.6 % (33.0-51.0); IMMATURE GRAN ABSOLUTE AUTO 0.02 K/mm3 (0.00-0.10); IMMATURE GRAN PERCENT AUTO 0 % (0-1); LYMPHOCYTES ABSOLUTE AUTO 3.26 K/mm3 (0.84-5.20); LYMPHOCYTES PERCENT AUTO 36 % (21-46); MONOCYTES ABSOLUTE AUTO 0.54 K/mm3 (0.16-1.47); MONOCYTES PERCENT AUTO 6 % (4-13); Mean Corpuscular HGB 29.1 pg (26.0-34.0); Mean Corpuscular HGB Conc 32.9 g/dL (31.5-36.5); Mean Corpuscular Volume 89 fL (80-100); Mean Platelet Volume 9.6 fL (9.1-12.4); NEUTROPHILS ABSOLUTE AUTO 4.47 K/mm3 (1.96-9.15); NEUTROPHILS PERCENT AUTO 49 % (41-73); Platelet Count 374 K/mm3 (150-400); RDW Coefficient Variation 12.7 % (11.7-14.2); RDW Standard Deviation 41.7 fL (35.1-46.3); Red Blood Cell Count 4.81 M/mm3 (3.80-5.20); White Blood Cell Count 9.12 K/mm3 (4.00-11.30)
[2024-07-11 19:55] LABS: Albumin, Blood 4.1 g/dL (3.4-5.0); Bilirubin, Total 0.7 mg/dL (0.1-1.0); Bun/Creatinine Ratio 15.9 (12.0-20.0); Calcium, Blood 8.6 mg/dL (8.5-10.1); Creatinine, Blood 0.82 mg/dL (0.40-1.00); Globulin, Blood 4.1 g/dL (2.2-4.0); Total Protein, Blood 8.2 g/dL (6.4-8.2)
== END 2024-07-11 21:52 | disposition left against medical advice (07) ==
LOC: ER 18:10
PROVIDERS: Student in an Organized Health Care Education/Training Program
DX: R10.9 Unspecified abdominal pain (principal); Z53.21 Procedure and treatment not carried out due to patient leaving prior to being seen by health care provider
CPT/HCPCS: 71046; 80053; 83690; 85025; 93005; 93010

== ENCOUNTER → 2024-11-25 | Outpatient (CLI) | payer OTHER ==
[2024-11-25 19:46] LABS: Influenza A, PCR NEGATIVE (NEGATIVE); Influenza B, PCR NEGATIVE (NEGATIVE); Resp Syncytial Virus, PCR NEGATIVE (NEGATIVE); SARS-Cov-2 (COVID-19) PCR, MMC NEGATIVE (NEGATIVE)
== END ==
LOC: LAB SHORT 11:19 → LAB 11:19
PROVIDERS: Registered Nurse
DX: J02.9 Acute pharyngitis, unspecified (principal); R05.1 Acute cough
CPT/HCPCS: 87637